=== PATIENT | male | born 1980 | race Caucasian/White ===

== ENCOUNTER 2022-03-25 19:38 | Emergency (ER) | payer OTHER ==
[2022-03-25] MEDS ORDERED: ASPIRIN 81 MG CHEWABLE TABLET ONE (20:51)
[2022-03-25] MEDS ORDERED: NITROGLYCERIN 0.4 MG/TAB SL ONE (20:52)
[2022-03-25 21:53] LABS: Absolute Lymphocytes (CBC) 1.7 K/uL (0.7-4.9); Hematocrit 44.8 % (39.6-49.0); Lymphocytes % 15.3 % (15.3-44.8); MCV 83.4 fL (80-100); MPV 7.5 fL (7.6-11.3); Protime INR 1.13; RBC Red Blood Cell Count 5.37 M/uL (4.33-5.43)
--- NOTE | 2022-03-25 21:59 | RAD REPORT ---
EXAM DESCRIPTION: [place] Single View03/25/2022 8:20 pm CLINICAL HISTORY: Chest pain COMPARISON: none FINDINGS: The lungs appear clear of acute infiltrate. The heart is normal size IMPRESSION: No acute abnormalities displayed
[2022-03-25 22:08] LABS: SARS-CoV-2 Antigen Rapid Res Negative (Negative)
[2022-03-25 22:10] LABS: Potassium 3.8 mmol/L (3.5-5.1)
--- NOTE | 2022-03-25 22:14 | RAD REPORT ---
EXAM DESCRIPTION: CT - Chest For Pe Angio - 03/25/2022 9:55 pm CLINICAL HISTORY: Chest pain COMPARISON: None. TECHNIQUE: Dynamically enhanced axial 3 mm thick images of the chest were obtained during administra tion of <100> mL Isovue 370 IV contrast. Coronal and oblique reconstruction images were generated and reviewed. Exam utilizes a protocol for optimal evaluation of pulmonary arterial tree. Maximum intensity projections 3D imaging was utilized All CT scans are performed using dose optimization technique as appropriate and may include automated exposure control or mA/KV adjustment according to patient size. FINDINGS: Suboptimal opacification of the pulmonary arteries. No gross central pulmonary embolus seen A thoracic aortic aneurysm is not noted. A pleural effusion is not seen. A pericardial effusion is not seen. A lung consolidation is not present. IMPRESSION: No gross central pulmonary embolus seen
[2022-03-25 22:28] LABS: Troponin High Sensitivity 106.4 pg/mL (<58.9)
--- NOTE | 2022-03-25 22:44 | EDPHYS ---
Physician Documentation [facility] Name: Merlin Beckham Age: 42 yrs Sex: Male : 1980 Arrival Date: 03/25/2022 Time: 19:41 Bed 7 Private MD: ED Physician Cosmo Jimenez HPI: 03/25 20:39 This 42 yrs old Male presents to ER via Ambulatory with complaints of Chest Pain, Arm rn Pain. 20:40 The patient or guardian reports chest pain that is located primarily in the substernal rn area. Onset: just prior to arrival. The pain radiates to both arms. Associated signs and symptoms: Pertinent positives: diaphoresis, Pertinent negatives: abdominal pain, lower extremity swelling, palpitations, shortness of breath, syncope, vomiting. The chest pain is described as a pressure. Duration: The patient or guardian reports multiple episodes, that are intermittent. Modifying factors: The symptoms are alleviated by nothing. the symptoms are aggravated by exertion. Severity of pain: At its worst the pain was moderate in the emergency department the pain has improved. The patient has not experienced similar symptoms in the past. The patient has not recently seen a physician. Pt reports had COVID last week, feels like got over it, comes in today with chest pain, substernal, radiates to both arms, no sob. Pain worse with exertion. Father with NV early 50s. No trauma. . Historical: - Allergies: 20:03 No Known Allergies; bm7 - Home Meds: 20:03 None [Active]; bm7 - PMHx: 20:03 Hypertensive disorder; bm7 - PSHx: 20:03 None; bm7 - Immunization history:: Adult Immunizations up to date, Client reports having NOT received the Covid vaccine. - Social history:: Smoking status: Patient denies any tobacco usage or history of. - Family history:: not pertinent. - Hospitalizations: : No recent hospitalization is reported. ROS: 20:40 Constitutional: Negative for fever, chills, and weight loss, Eyes: Negative for injury, rn pain, redness, and discharge, Neck: Negative for injury, pain, and swelling, Cardiovascular: Negative for palpitations, and edema, Respiratory: Negative for shortness of breath, cough, wheezing, and pleuritic chest pain, Abdomen/GI: Negative for abdominal pain, nausea, vomiting, diarrhea, and constipation, Back: Negative for injury and pain, MS/Extremity: Negative for injury and deformity, Skin: Negative for injury, rash, and discoloration, Neuro: Negative for headache, weakness, numbness, tingling, and seizure. Exam: 20:11 ECG was reviewed by the Attending Physician. rn 20:40 Constitutional: This is a well developed, well nourished patient who is awake, alert, rn and in no acute distress. Head/Face: Normocephalic, atraumatic. Cardiovascular: Regular rate and rhythm. No pulse deficits. Respiratory: No increased work of breathing, no retractions or nasal flaring. Abdomen/GI: Soft, non-tender Skin: Warm, dry MS/ Extremity: Pulses equal, no cyanosis. Neurovascular intact. Full, normal range of motion. Equal circumference. Neuro: Awake and alert, GCS 15 Vital Signs: 19:45 BP 157 / 100; Pulse 80; Resp 18; Temp 97.8(O); Pulse Ox 99% on R/A; Weight 107.95 kg bm7 (R); Height 6 ft. 3 in. (190.50 cm); Pain 6/10; 20:57 BP 156 / 99; Pulse 93; Resp 15; Pulse Ox 100% on R/A; Pain 3/10; ke1 21:00 Pain 1/10; ke1 23:00 BP 150 / 99; Pulse 89; Resp 17; Pulse Ox 100% on R/A; ke1 03/26 00:51 BP 143 / 99; Pulse 72; Resp 17; Pulse Ox 100% on R/A; Pain 1/10; ke1 03/25 19:45 Body Mass Index 29.75 (107.95 kg, 190.50 cm) bm7 MDM: 03/25 19:41 Patient medically screened. rn 22:42 Differential diagnosis: acute myocardial infarction, acute pericarditis, anxiety, rn coronary artery disease pericarditis, pneumothorax, pulmonary embolus, stable angina, unstable angina. The patient was given aspirin in the Emergency Department. Data reviewed: vital signs, nurses notes, lab test result(s), EKG, radiologic studies, CT scan, plain films, and as a result, I will admit patient. Counseling: I had a detailed discussion with the patient and/or guardian regarding: the historical points, exam findings, and any diagnostic results supporting the discharge/admit diagnosis, lab results, radiology results, the need for further work-up and treatment in the hospital. Response to treatment: the patient's symptoms have markedly improved after treatment, and as a result, I will admit patient. 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 . 03/25 19:52 Order name: Basic Metabolic Panel; Complete Time: :30 rn 03/25 19:52 Order name: CBC with Diff; Complete Time: : rn 03/25 19:52 Order name: NT PRO-BNP; Complete Time: :30 rn 03/25 19:52 Order name: PT-INR; Complete Time: :56 rn 03/25 19:52 Order name: Troponin HS; Complete Time: : rn 03/25 19:54 Order name: SARS RAPID; Complete Time: : rn 03/25 19:52 Order name: XRAY Chest (1 view); Complete Time: : rn 03/25 19:52 Order name: EKG; Complete Time: 19:54 rn 03/25 19:52 Order name: Cardiac monitoring; Complete Time: : rn 03/25 19:52 Order name: CT Chest For PE Angio; Complete Time: : rn 03/25 22:11 Order name: CREATININE WHOLE BLOOD; Complete Time: 22:30 EDMS 03/25 19:52 Order name: EKG - Nurse/Tech; Complete Time: : rn 03/25 19:52 Order name: IV Saline Lock; Complete Time: : rn 03/25 19:52 Order name: Labs collected and sent; Complete Time: : rn 03/25 19:52 Order name: O2 Per Protocol; Complete Time: : rn 03/25 19:52 Order name: O2 Sat Monitoring; Complete Time: 21: rn EC:11 Rate is 72 beats/min. Rhythm is regular. QRS [place] is Normal. [place] interval is normal. QRS rn interval is normal. QT interval is normal. No Q waves. T waves are Normal. ST Segment is depressed in leads I, II, V1, V2, V3, V4, V5, V6. Clinical impression: NSR w/ Non-specific ST/T Changes. Interpreted by me. Reviewed by me. Administered Medications: 20:54 Drug: Aspirin Chewable Tablet 324 mg Route: PO; ke03/26 00:53 Follow up: Response: No adverse reaction 03/25 20:54 Drug: Nitroglycerin 0.4 mg Route: Sublingual; ke1 21:00 Follow up: Pain 07/26 Adult; Response: Pain is decreased ke1 23:40 Drug: Lovenox (enoxaparin) 1 mg/kg Route: Sub-Q; Site: right lower abdomen; ke1 03/26 00:52 Follow up: Response: No adverse reaction ke1 Disposition Summary: 03/25/22 22:43 Transfer Ordered Transfer Location: [facility] rn Reason: Higher level of care rn Condition: Stable rn Problem: new rn Symptoms: have improved rn Accepting Physician: (03/26/22 02:29) mh5 Diagnosis - Subsequent non-ST elevation (NSTEMI) myocardial infarction rn - Chest pain, unspecified rn Forms: - Medication Reconciliation Form rn - SBAR form rn Signatures: Dispatcher [employer] EDCosmo Chatterjee MD MD rn Martinez, Maria 5 Radha Dominique RN RN bm7 Nani Guadarrama RN RN ke1 Corrections: (The following items were deleted from the chart) 02:03/25 22:43 rn mh5
--- NOTE | 2022-03-25 22:44 | ER ---
Nurse's Notes [facility] Name: Merlin Beckham Age: 42 yrs Sex: Male : 1980 Arrival Date: 03/25/2022 Time: 19:41 Bed 7 Private MD: Diagnosis: Subsequent non-ST elevation (NSTEMI) myocardial infarction;Chest pain, unspecified Presentation: 03/25 20:02 Chief complaint: Patient states: I started having chest pain and chills earlier today. bm7 I am just getting over covid though so I am not sure it is due to COVID or not. Coronavirus screen: Client presents with at least one sign or symptom that may indicate coronavirus-19. Standard/surgical mask placed on the client. Ebola Screen: No symptoms or risks identified at this time. Initial Sepsis Screen: Does the patient meet any 2 criteria? No. Patient's initial sepsis screen is negative. Does the patient have a suspected source of infection? No. Patient's initial sepsis screen is negative. Risk Assessment: Do you want to hurt yourself or someone else? Patient reports no desire to harm self or others. Onset of symptoms was March 25, 2022. 20:02 Method Of Arrival: Ambulatory 7 20:02 Acuity: AVNI 2 bm7 Triage Assessment: 20:03 General: Appears in no apparent distress. uncomfortable, Behavior is calm, cooperative, bm7 appropriate for age. Pain: Complains of pain in mid-sternal area Pain radiates to right arm and left arm. EENT: No deficits noted. No signs and/or symptoms were reported regarding the EENT system. Neuro: No deficits noted. Cardiovascular: Rhythm is sinus rhythm Chest pain is described as mild, quality is pressure, radiates to right to left arm(s). Respiratory: No deficits noted. Denies shortness of breath at rest, on exertion. GI: No deficits noted. No signs and/or symptoms were reported involving the gastrointestinal system. : No deficits noted. No signs and/or symptoms were reported regarding the genitourinary system. Derm: No deficits noted. No signs and/or symptoms reported regarding the dermatologic system. Musculoskeletal: No deficits noted. No signs and/or symptoms reported regarding the musculoskeletal system. Historical: - Allergies: 20:03 No Known Allergies; bm7 - Home Meds: 20:03 None [Active]; bm7 - PMHx: 20:03 Hypertensive disorder; bm7 - PSHx: 20:03 None; bm7 - Immunization history:: Adult Immunizations up to date, Client reports having NOT received the Covid vaccine. - Social history:: Smoking status: Patient denies any tobacco usage or history of. - Family history:: not pertinent. - Hospitalizations: : No recent hospitalization is reported. Screenin:58 Abuse screen: Denies threats or abuse. Nutritional screening: No deficits noted. ke1 Tuberculosis screening: No symptoms or risk factors identified. Fall Risk None identified. Assessment: 20:00 Pain: Complains of pain in chest Pain radiates to right arm and left arm Pain currently ke1 is 3 out of 10 on a pain scale. at worst was 8 out of 10 on a pain scale. level that patient reports is acceptable is 5 out of 10 on a pain scale. Quality of pain is described as pressure, Pain began gradually. 03/26 01:26 Reassessment: Report called and given to Elvira RDZ \T\ [facility]. ke1 Vital Signs: 03/25 19:45 BP 157 / 100; Pulse 80; Resp 18; Temp 97.8(O); Pulse Ox 99% on R/A; Weight 107.95 kg [facility] (R); Height 6 ft. 3 in. (190.50 cm); Pain 6/10; 20:57 BP 156 / 99; Pulse 93; Resp 15; Pulse Ox 100% on R/A; Pain 3/10; ke1 21:00 Pain 1/10; ke1 23:00 BP 150 / 99; Pulse 89; Resp 17; Pulse Ox 100% on R/A; ke1 03/26 00:51 BP 143 / 99; Pulse 72; Resp 17; Pulse Ox 100% on R/A; Pain 1/10; ke1 03/25 19:45 Body Mass Index 29.75 (107.95 kg, 190.50 cm) 7 ED Course: 03/25 19:41 Patient arrived in ED. jj6 19:41 Cosmo Jimenez MD is Attending Physician. rn 19:45 Arm band placed on left wrist. 7 20:03 Triage completed. 7 20:16 Nani Guadarrama RN is Primary Nurse. ke1 20:22 XRAY Chest (1 view) In Process Unspecified. EDMS 20:58 Bed in low position. Call light in reach. Client placed on continuous cardiac and pulse ke1 oximetry monitoring. NIBP monitoring applied. teletypesetter monitor on. Pulse ox on. NIBP on. 20:58 Patient maintains SpO2 saturation greater than 95% on room air. ke1 21:27 Inserted saline lock: 20 gauge in right antecubital area, using aseptic technique. ke1 21:57 CT Chest For PE Angio In Process Unspecified. EDMS 22:28 Notified ED physician of a critical lab result(s). troponin of 106.4 Dr Jimenez notified. bb Administered Medications: 20:54 Drug: Aspirin Chewable Tablet 324 mg Route: PO; ke1 03/26 00:53 Follow up: Response: No adverse reaction ke1 03/25 20:54 Drug: Nitroglycerin 0.4 mg Route: Sublingual; ke1 21:00 Follow up: Pain 07/26 Adult; Response: Pain is decreased ke1 23:40 Drug: Lovenox (enoxaparin) 1 mg/kg Route: Sub-Q; Site: right lower abdomen; ke1 03/26 00:52 Follow up: Response: No adverse reaction ke1 Outcome: 03/25 22:43 ER care complete, transfer ordered by . patrizia 03/26 02:29 Patient left the ED. 5 Signatures: Dispatcher [employer] Dorita Espinoza RN Cosmo Rodríguez MD MD rn Martinez, Maria [facility] Radha Dominique RN RN Meche Aviles Kouassi, RN RN ke1
[2022-03-25] MEDS ORDERED: ENOXAPARIN 100 MG/ML SYR SQ ONE (23:04)
[2022-03-26 08:05] VITALS: TEMP 97.8
[2022-03-26 08:15] VITALS: O2SAT 100
[2022-03-26 08:37] VITALS: BP 143/99
--- NOTE | 2022-03-28 15:10 | EKG ---
Test Date: 2022-03-25 Test Time: 19:49:28 Care Team Assistant: MICHOACANO MEASUREMENT RESULTS: Intervals: Rate: 72 NH: 146 QRSD: 106 QT: 384 QTc: 420 [place]: P: 44 NH: 146 QRS: -12 T: 21 INTERPRETIVE STATEMENTS: Normal sinus rhythm Marked ST abnormality, possible septal subendocardial injury Abnormal ECG Compared to ECG 11/20/2001 14:22:00 ST (T wave) deviation now present Sinus arrhythmia no longer present Electronically Signed On 03-28-22 15:08:46 CDT by Mikael Paniagua
== END 2022-03-26 02:29 | disposition short-term general hospital (02) ==
LOC: ER 19:38
DX: I21.4 Non-ST elevation (NSTEMI) myocardial infarction (principal); I10 Essential (primary) hypertension; Z20.822 Contact with and (suspected) exposure to COVID-19
CPT/HCPCS: 93005; 85025; 80048; 36415; 85610; 82565; 84484; 83880; 71275; 71045; 96372; 99285; 87811; Q9967; J1650

== ENCOUNTER → 2023-08-23 | Emergency (ER) | payer OTHER ==
[2023-08-23 17:18] LABS: Absolute Lymphocytes (CBC) 1.3 K/uL (0.7-4.9); Hematocrit 43.4 % (39.6-49.0); Lymphocytes % 13.3 % (15.3-44.8); MCV 87.1 fL (80-100); MPV 8.4 fL (7.6-11.3); Platelets 213 thou/uL (152-406); RBC Red Blood Cell Count 4.98 M/uL (4.33-5.43)
--- NOTE | 2023-08-23 17:18 | RAD REPORT ---
EXAM DESCRIPTION: RAD - Chest Pa And Lat (2 Views) - 08/23/2023 4:59 pm CLINICAL HISTORY: CHEST PAIN COMPARISON: Chest Single View dated 03/25/2022 TECHNIQUE: PA and lateral views of the chest were obtained. FINDINGS: The lungs are clear. Heart size is normal and central vasculature is within normal limits. Sequelae of CABG. No pleural effusion or pneumothorax seen. No acute bony finding noted. IMPRESSION: No acute cardiopulmonary process.
[2023-08-23 17:27] LABS: Potassium 3.3 mEq/L (3.5-5.1); Troponin High Sensitivity 6.9 pg/mL (<58.9)
--- NOTE | 2023-08-23 18:02 | ER ---
Nurse's Notes 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 Coronavirus screen: At this time, the client does not indicate any symptoms associated with coronavirus-19. Ebola Screen: No symptoms or risks identified at this time. Initial Sepsis Screen: Does the patient meet any 2 criteria? No. Patient's initial sepsis screen is negative. Does the patient have a suspected source of infection? No. Patient's initial sepsis screen is negative. Risk Assessment: Do you want to hurt yourself or someone else? Patient reports no desire to harm self or others. Onset of symptoms was August 23, 2023. 16:21 Method Of Arrival: Ambulatory ko1 16:21 Acuity: AVNI 3 ko1 Triage Assessment: 16:25 General: Appears in no apparent distress. Behavior is calm, cooperative, appropriate ko1 for age. Pain: Complains of pain in chest. Historical: - Allergies: 16:25 No Known Allergies; ko1 - PMHx: 16:25 Hypertensive disorder; Coronary atherosclerosis; Myocardial infarction; ko1 - PSHx: 16:25 Coronary artery bypass graft; ko1 - Immunization history:: Adult Immunizations up to date. - Social history:: Smoking status: Patient denies any tobacco usage or history of. Screenin:49 [facility] ED Fall Risk Assessment (Adult) History of falling in the last 3 months, kc6 including since admission No falls in past 3 months (0 pts) Confusion or Disorientation No (0 pts) Intoxicated or Sedated No (0 pts) Impaired Gait No (0 pts) Mobility Assist Device Used No (0 pt) Altered Elimination No (0 pt) Score/Fall Risk Level 0 - 2 = Low Risk. Abuse screen: Denies threats or abuse. Denies injuries from another. Nutritional screening: No deficits noted. Tuberculosis screening: No symptoms or risk factors identified. Assessment: 16:50 General: Appears in no apparent distress. comfortable, well groomed, well developed, kc6 Behavior is calm, cooperative, appropriate for age. Pain: Complains of pain in chest and left arm Pain currently is 4 out of 10 on a pain scale. Neuro: Level of Consciousness is awake, alert, obeys commands, Oriented to person, place, time, situation, Appropriate for age. Cardiovascular: Reports chest pain, Heart tones S1 S2 present Capillary refill < 3 seconds Rhythm is sinus rhythm. Respiratory: Airway is patent Trachea midline Respiratory effort is even, unlabored, Respiratory pattern is regular, symmetrical. GI: No signs and/or symptoms were reported involving the gastrointestinal system. : No signs and/or symptoms were reported regarding the genitourinary system. EENT: No signs and/or symptoms were reported regarding the EENT system. Derm: No signs and/or symptoms reported regarding the dermatologic system. Skin is intact, is healthy with good turgor, Skin is pink, warm \T\ dry. Musculoskeletal: No signs and/or symptoms reported regarding the musculoskeletal system. Circulation, motion, and sensation intact. Capillary refill < 3 seconds, Range of motion: intact in all extremities. Vital Signs: 16:21 BP 135 / 92; Pulse 96; Resp 16; Temp 97.8; Pulse Ox 100% ; ko1 ED Course: 16:18 Patient arrived in ED. mg5 16:19 Tucker Salinas DO is Attending Physician. ms3 16:25 Triage completed. ko1 16:25 Arm band placed on right wrist. Patient placed in waiting room, Patient notified of ko1 wait time. 16:28 Saloni Anderson, KENDELL is Primary Nurse. kc6 16:49 Patient has correct armband on for positive identification. Placed in gown. Bed in low kc6 position. Call light in reach. Side rails up X 1. Adult w/ patient. Client placed on continuous cardiac and pulse oximetry monitoring. NIBP monitoring applied. monitor and storage bin tender on. 16:49 Inserted saline lock: 20 gauge in right antecubital area, using aseptic technique. kc6 Blood collected. Patient maintains SpO2 saturation greater than 95% on room air. 17:01 Chest Pa And Lat (2 Views) XRAY In Process Unspecified. EDMS 18:19 No provider procedures requiring assistance completed. IV discontinued. ap3 18:20 Provided Education on: discharge instructions. ap3 Administered Medications: No medications were administered Medication: 18:20 VIS not applicable for this client. ap3 Outcome: 18:01 Discharge ordered by . ms3 18:19 Discharged to home ambulatory, ap3 18:19 Condition: good 18:19 Discharge instructions given to patient, Instructed on discharge instructions, follow up and referral plans. Demonstrated understanding of instructions, follow-up care, 18:20 Patient left the ED. ap3 Signatures: Dispatcher [employer] EDMS Marisa Sánchez RN RN ap3 Tucker Salinas DO DO ms3 Saloni Anderson RN RN [id number] Nya Hernandez RN RN ko1 Bren Avila mg5 Corrections: (The following items were deleted from the chart) 16:26 16:25 PMHx: Hypertensive disorder; edilson waggoner
--- NOTE | 2023-08-23 18:02 | EDPHYS ---
Physician Documentation [facility] Name: Merlin Beckham Age: 43 yrs Sex: Male : 1980 Arrival Date: 08/23/2023 Time: 16:14 Bed 7 Private MD: ED Physician Tucker Salinas HPI: 08/23 16:29 This 43 yrs old Male presents to ER via Ambulatory with complaints of Shoulder Pain, ms3 Side/Rib pain. 16:29 43-year-old male with past medical history of hypertension, coronary artery disease, ms3 myocardial infarction presents to the emergency department for left lower rib pain and left upper chest pain. Patient states the pain is worse with inspiration. Patient rates the pain a 2/10 Patient states he took Tylenol with some relief.. Historical: - Allergies: 16:25 No Known Allergies; ko1 - PMHx: 16:25 Hypertensive disorder; Coronary atherosclerosis; Myocardial infarction; ko1 - PSHx: 16:25 Coronary artery bypass graft; ko1 - Immunization history:: Adult Immunizations up to date. - Social history:: Smoking status: Patient denies any tobacco usage or history of. ROS: 16:29 Constitutional: Negative for fever, and chills. Neck: Negative for injury, pain, and ms3 swelling, Respiratory: Negative for shortness of breath, cough, wheezing, and pleuritic chest pain, Abdomen/GI: Negative for abdominal pain, nausea, vomiting, diarrhea, and constipation, MS/Extremity: Negative for injury and deformity, 16:29 Cardiovascular: Positive for chest pain, 16:29 All other systems are negative, Exam: 16:29 Constitutional: This is a well developed, well nourished patient who is awake, alert, ms3 and in no acute distress. Head/Face: Normocephalic, atraumatic. Neck: Trachea midline, no cervical lymphadenopathy. Supple, full range of motion without nuchal rigidity, or vertebral point tenderness. No Meningismus. Chest/axilla: Normal chest wall appearance and motion. Nontender with no deformity. Cardiovascular: Regular rate and rhythm with a normal S1 and S2. No gallops, murmurs, or rubs. Normal PMI, no JVD. No pulse deficits. Respiratory: Lungs have equal breath sounds bilaterally, clear to auscultation and percussion. No rales, rhonchi or wheezes noted. No increased work of breathing, no retractions or nasal flaring. Abdomen/GI: Soft, non-tender, with normal bowel sounds. No distension or tympany. No guarding or rebound. No evidence of tenderness throughout. Skin: Warm, dry with normal turgor. Normal color with no rashes, no lesions, and no evidence of cellulitis. MS/ Extremity: Pulses equal, no cyanosis. Neurovascular intact. Full, normal range of motion. 18:03 ECG was reviewed by the Attending Physician. ms3 Vital Signs: 16:21 BP 135 / 92; Pulse 96; Resp 16; Temp 97.8; Pulse Ox 100% ; ko1 MDM: 16:28 Patient medically screened. ms3 16:29 Differential diagnosis: Myocardial infarction versus pneumothorax versus pneumonia. ms3 18:03 Data reviewed: vital signs, nurses notes, and as a result, I will discharge patient. ms3 Independent interpretation of the following test(s) in the Emergency Department EKG: See my EKG interpretation above X-Ray: My interpretation is Chest x-ray images reviewed by me do not reveal pneumothorax.. Care significantly affected by the following chronic conditions: Hypertension, NV, CAD. Scoring Tools HEART Score: History: Slightly Suspicious (0) ECG: Non specific repolarization disturbance/ LBTB/ PM (1) Age: < or = 45 years (0) Risk Factors: 1 or 2 Risk factors (1) Troponin: < or = 1 x Normal limit (0) Total Score = 2. Counseling: I had a detailed discussion with the patient and/or guardian regarding the historical points, exam findings, and any diagnostic results supporting the discharge/admit diagnosis, lab results, radiology results, the need for outpatient follow up, to return to the emergency department if symptoms worsen or persist or if there are any questions or concerns that arise at home. Special discussion: Based on the patient's history, exam, and Dx evaluation, there is no indication for emergent intervention or inpatient Tx. It is understood by the patient/guardian that if the Sx's persist or worsen they need to return immediately for re-evaluation. ED course: Discussed obtaining second troponin with patient and patient declines at this time. 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 Patient understands agrees with plan. All questions were answered. Return precautions discussed include worsening symptoms, or any concerns. 08/23 16:28 Order name: Basic Metabolic Panel; Complete Time: 17:29 ms3 08/23 16:28 Order name: CBC with Diff; Complete Time: 17:29 ms3 08/23 16:28 Order name: Troponin HS; Complete Time: 17:29 ms3 08/23 16:28 Order name: Chest Pa And Lat (2 Views) XRAY; Complete Time: 17:29 ms3 08/23 16:28 Order name: EKG; Complete Time: 16:29 ms3 08/23 16:28 Order name: Cardiac monitoring; Complete Time: 16:49 ms3 08/23 16:28 Order name: EKG - Nurse/Tech; Complete Time: 16:49 ms3 08/23 16:28 Order name: IV Saline Lock; Complete Time: 16:49 ms3 08/23 16:28 Order name: Labs collected and sent; Complete Time: 16:49 ms3 08/23 16:28 Order name: O2 Per Protocol; Complete Time: 16:49 ms3 08/23 16:28 Order name: O2 Sat Monitoring; Complete Time: 16:49 ms3 EC:03 Rate is 83 beats/min. Rhythm is regular. Left axis deviation noted. AK interval is ms3 normal. Clinical impression: NSR w/ Non-specific ST/T Changes and incmplete RBBB. Interpreted by me. Reviewed by me. Administered Medications: No medications were administered Disposition Summary: 08/23/23 18:01 Discharge Ordered Notes: Location: Home ms3 Condition: Stable ms3 Diagnosis - Chest pain, unspecified ms3 Followup: ms3 - With: Private Physician - When: 2 - 3 days - Reason: Recheck today's complaints Discharge Instructions: - Discharge Summary Sheet ms3 - Nonspecific Chest Pain, Adult ms3 Forms: - Medication Reconciliation Form ms3 - Thank You Letter ms3 - Antibiotic Education ms3 - Prescription Opioid Use ms3 - Patient Portal Instructions ms3 - Leadership Thank You Letter ms3 Signatures: Dispatcher [employer] Tucker Zelaya DO DO ms3 Nya Hernandez, RN RN ko1 Corrections: (The following items were deleted from the chart) 16:26 16:25 PMHx: Hypertensive disorder; ko1 ko1
--- NOTE | 2023-08-24 13:24 | EKG ---
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
== END ==
LOC: ER 16:14
DX: R07.89 Other chest pain (principal); R07.81 Pleurodynia; I10 Essential (primary) hypertension; Z95.1 Presence of aortocoronary bypass graft
CPT/HCPCS: 36415; 71046; 80048; 84484; 85025; 93005